=== PATIENT | female | born 1970 | race Caucasian/White ===

== ENCOUNTER → 2020-07-08 | Outpatient (CLI) | payer OTHER | LOC: M.RAD 15:37 | PROVIDERS: ATTEND Internal Medicine | DX: M48.04 Spinal stenosis, thoracic region (principal); G89.29 Other chronic pain ==

== ENCOUNTER → 2020-07-31 | Outpatient (CLI) | payer OTHER | LOC: M.CT 08:00 | PROVIDERS: ATTEND Internal Medicine Cardiovascular Disease | DX: Z13.6 Encounter for screening for cardiovascular disorders (principal); I25.10 Atherosclerotic heart disease of native coronary artery without angina pectoris ==